=== PATIENT | female | born 1955 | race Two or more races ===

== ENCOUNTER 2023-10-23 20:08 | Emergency (ER) | payer OTHER ==
[~2023-10-23] VITALS: Ht 157.5 cm; Wt 108.9 kg
[2023-10-23] MEDS ORDERED: PROTONIX40 MG PO (20:26)
[2023-10-23] MEDS ORDERED: IRBESARTAN150 MG PO (20:26)
[2023-10-23] MEDS ORDERED: PEPCID AC20 MG PO (20:26)
[2023-10-23] MEDS ORDERED: DAFLONEX-XL 11300 MG PO (20:27)
[2023-10-23] MEDS ORDERED: MYRBETRIQ25 MG PO (20:27)
[2023-10-23] MEDS ORDERED: ELIQUIS5 MG PO (20:28)
[2023-10-23] MEDS ORDERED: NEURONTIN600 M1 PO (20:28)
[2023-10-23 21:42] LABS: HEMATOCRIT 32.2 % (36.0-45.00); HEMOGLOBIN 10.9 g/dL (12.0-15.00); MEAN CELL VOLUME 90.2 fL (80.00-100.00); MEAN CORPUSCULAR HEMOGLOBIN 30.4 pg (27.00-32.0); MEAN CORPUSCULAR HGB CONC 33.7 g/dl (32.0-36.0); PLATELET COUNT 251 K/uL (150-450); RED BLOOD COUNT 3.57 M/uL (4.00-6.00); RED CELL DISTRIBUTION WIDTH 13.8 % (11.5-14.5)
[2023-10-23 22:00] LABS: D DIMER 0.23 MG/L; INR 1.04; PARTIAL THROMBOPLASTIN TIME 27.7 SECONDS (22.0-34.0); PROTHROMBIN TIME 10.9 SECONDS (9.0-11.5)
[2023-10-23 22:03] LABS: CALCIUM 9.7 mg/dL (8.5-10.1); CREATININE SERUM 1.01 mg/dL (0.55-1.02); GFR 54.67; POTASSIUM 3.97 mEq/L (3.5-5.1)
== END 2023-10-24 10:00 | disposition home or self-care (01) ==
LOC: ER 20:08
PROVIDERS: General Practice
DX: I82.409 Acute embolism and thrombosis of unspecified deep veins of unspecified lower extremity (principal); M79.605 Pain in left leg